=== PATIENT | female | born 1955 | race Hispanic/Latino ===

== ENCOUNTER → 2021-12-20 | Day surgery (SDC) | payer OTHER ==
[~2021-12-20] MED LIST: FENTANYL CITRATE/PF 100MCG/2 ML INJ ONE; LINZESS72 MCG PO; LISINOPRIL2.5 MG PO; MIDAZOLAM HCL 2 MG/2 ML VIAL ONE; PROPOFOL IV EMULSION 10 MG/ML 20 ML VIAL ONE
[2021-12-20 15:35] VITALS: BP 128/88
== END | disposition home or self-care (01) ==
LOC: OR 11:50
PROVIDERS: ATTEND Internal Medicine Gastroenterology
DX: K59.09 Other constipation (principal); D12.5 Benign neoplasm of sigmoid colon; K64.4 Residual hemorrhoidal skin tags; K64.8 Other hemorrhoids; I10 Essential (primary) hypertension; Z01.810 Encounter for preprocedural cardiovascular examination; Z01.812 Encounter for preprocedural laboratory examination; Z20.822 Contact with and (suspected) exposure to COVID-19; Z79.899 Other long term (current) drug therapy; Z68.26 Body mass index [BMI] 26.0-26.9, adult; Z80.0 Family history of malignant neoplasm of digestive organs
CPT/HCPCS: 45380; 88305; 93005; J2250; J2704; J3010; U0002; 45378